=== PATIENT | female | born 1960 | race Caucasian/White ===

== ENCOUNTER 2023-04-05 19:00 | Observation (INO) | payer MEDICARE, MEDICAID ==
[2023-04-05] MEDS ORDERED: HYDROmorphone 1 MG/ML Syringe SUBCUT ONE (19:11)
[2023-04-05] MEDS ORDERED: HYDROmorphone 0.5 MG/0.5 ML Syringe SUBCUT ONE (19:18)
[2023-04-05] MEDS ORDERED: HYDROmorphone 0.5 MG/0.5 ML Syringe IM ONE (20:15)
[2023-04-06] MEDS: HYDROmorphone 0.5 MG/0.5 ML Syringe SUBCUT PRN ×2 (01:09→06:36)
[2023-04-06] MEDS ORDERED: HYDROmorphone 1 MG/ML Syringe SUBCUT ONE ×2 (09:21→13:08)
[2023-04-06] MEDS ORDERED: LORazepam Conc Solution 2 MG/ML 30 ML Bottle PO SCH ×2 (10:00→13:00)
[2023-04-06] MEDS ORDERED: LORazepam Conc Solution 2 MG/ML 30 ML Bottle PO ONE (13:09)
== END 2023-04-06 13:40 | disposition short-term general hospital (02) ==
LOC: VM.ED 19:00 → VM.MS 21:21
PROVIDERS: ADMIT Physician Assistant; ATTEND Physician Assistant
DX: S72.002A Fracture of unspecified part of neck of left femur, initial encounter for closed fracture (principal); Q90.9 Down syndrome, unspecified; F03.90 Unspecified dementia, unspecified severity, without behavioral disturbance, psychotic disturbance, mood disturbance, and anxiety; Z88.2 Allergy status to sulfonamides; Z79.899 Other long term (current) drug therapy; X58.XXXA Exposure to other specified factors, initial encounter
CPT/HCPCS: 72170; 96372; 99285; A9270; G0378; J1170

== ENCOUNTER 2023-04-11 03:08 | Inpatient (IN) | payer MEDICARE, MEDICAID ==
[2023-04-11] MEDS ORDERED: cefTRIAXone 1 GM Vial IVPUSH ONE (03:13)
[2023-04-11] MEDS ORDERED: Furosemide 40 MG/4 ML VIAL IV ONE (03:13)
[2023-04-11] MEDS ORDERED: Sodium Chloride 0.9% 1,000 ML IV ONE (03:18)
[2023-04-11] MEDS ORDERED: Acetaminophen 650 MG Supp RECTAL ONE (03:27)
[2023-04-11] MEDS ORDERED: Morphine 2 MG/ML SYRINGE IVPUSH ONE ×2 (03:32→04:29)
[2023-04-11 03:34] LABS: BASOPHILS PERCENT AUTO 0.1 % (0.2-1.2); EOSINOPHILS PERCENT AUTO 0.1 % (0.0-4.0); HEMATOCRIT 30.5 % (33.0-47.0); HEMOGLOBIN 10.1 g/dL (12.0-16.0); IMMATURE GRAN ABSOLUTE AUTO 0.02 x10^3/uL (0.00-0.07); LYMPHOCYTES ABSOLUTE AUTO 0.8 x10^3/uL (1.0-4.8); LYMPHOCYTES PERCENT AUTO 9.4 % (25.0-50.0); MEAN CORPUSCULAR HEMOGLOBIN 32.8 pg (26.0-32.0); MEAN CORPUSCULAR HGB CONC 33.1 g/dL (32.0-36.0); MONOCYTES ABSOLUTE AUTO 0.8 x10^3/uL (0.0-0.8); MONOCYTES PERCENT AUTO 9.1 % (2.0-11.0); NEUTROPHILS ABSOLUTE AUTO 6.7 x10^3/uL (1.8-7.7); NEUTROPHILS PERCENT AUTO 81.1 % (50.0-80.0); PLATELET COUNT,PLT 251 x10^3/uL (130-400); RED BLOOD CELL COUNT 3.08 x10^6/uL (4.00-5.50); WHITE BLOOD CELL COUNT,WBC 8.3 x10^3/uL (4.0-10.0)
[2023-04-11 03:48] LABS: INR 1.1 (2.0-3.5); PROTHROMBIN TIME 12.1 SEC (9.5-12.2)
[2023-04-11 03:56] LABS: LACTIC ACID 5.9 mmol/L (0.4-2.0)
[2023-04-11 03:59] LABS: APPEARANCE,URINE CLEAR (CLEAR); BILIRUBIN,URINE SMALL (NEGATIVE); GLUCOSE,URINE NEGATIVE (NEGATIVE); KETONES,URINE TRACE mg/dL (NEGATIVE); LEUKOCYTE ESTERASE,URINE NEGATIVE (NEGATIVE); NITRITE,URINE NEGATIVE (NEGATIVE); OCCULT BLOOD,URINE TRACE-INTACT (NEGATIVE); PROTEIN,URINE 100 mg/dL (NEGATIVE); UROBILINOGEN,URINE 0.2 EU/dL (0.2)
[2023-04-11] MEDS ORDERED: metroNIDAZOLE/Normal Saline 500 MG in Premix Bag 1 BAG IV ONE (04:00)
[2023-04-11 04:04] LABS: A/G RATIO 0.53; ALANINE AMINOTRANSFERASE,ALT 36 U/L (14-59); ALBUMIN 2.5 g/dL (3.4-5.0); ALKALINE PHOSPHATASE 83 U/L (46-116); ASPARTATE AMNIOTRANSFERASE,AST 68 U/L (15-37); BILIRUBIN TOTAL 0.7 mg/dL (0.2-1.0); BLOOD UREA NITROGEN,BUN 28 mg/dL (7-18); CALCIUM 8.8 mg/dL (8.5-10.1); CARBON DIOXIDE,CO2 28 mmol/L (21-32); CHLORIDE,CL 112 mmol/L (98-107); CREATININE 1.6 mg/dL (0.55-1.02); GLUCOSE RANDOM 156 mg/dL (70-99); PRO B-TYPE NATRIUR PEPT,BNPPRO 1260 pg/mL (<=125); PROTEIN TOTAL,TP 7.2 g/dL (6.4-8.2); SODIUM,NA 152 mmol/L (136-145)
[2023-04-11 04:06] LABS: ESTIMATED GFR 36 mL/min (>=60)
[2023-04-11 04:07] LABS: CREATINE KINASE,CK 1261 U/L (26-192)
[2023-04-11 04:08] LABS: COLOR,URINE DARK YELLOW (YELLOW)
[2023-04-11 04:09] LABS: BACTERIA,URINE RARE /HPF (NOT SEEN); MUCUS,URINE FEW /LPF (NOT SEEN); RBC,URINE 0-5 /HPF (NOT SEEN); SQUAMOUS EPITHELIAL CELLS,UR FEW /HPF (NOT SEEN); WBC,URINE 0-5 /HPF (NOT SEEN)
[2023-04-11] MEDS ORDERED: Morphine 2 MG/ML SYRINGE IVPUSH PRN (04:19)
[2023-04-11] MEDS ORDERED: Ondansetron 4 MG/2 ML SDV IVPUSH PRN (06:58)
[2023-04-11] MEDS ORDERED: Atropine 1% Ophth Soln 5 ML Bottle SL PRN (06:58)
[2023-04-11] MEDS ORDERED: Menthol/Zinc Oxide Ointment 3.5 GM Tube TOP PRN (06:58)
[2023-04-11] MEDS ORDERED: Lidocaine 2% Viscous Solution 15 ML UD PO PRN (06:58)
[2023-04-11] MEDS ORDERED: HYDROmorphone 1 MG/ML Syringe IVPUSH SCH (07:00)
[2023-04-11] MEDS: HYDROmorphone 0.5 MG/0.5 ML Syringe IVPUSH PRN ×2 (10:55→13:45)
[2023-04-11] MEDS ORDERED: Acetaminophen 650 MG Supp RECTAL PRN (13:11)
== END 2023-04-11 16:48 | disposition expired | DRG 871 ==
LOC: VM.ED 03:08 → VM.MS 04:57
PROVIDERS: ADMIT Internal Medicine; ATTEND Family Medicine
DX: A41.9 Sepsis, unspecified organism (principal); J18.9 Pneumonia, unspecified organism; J69.0 Pneumonitis due to inhalation of food and vomit; J96.01 Acute respiratory failure with hypoxia; G30.9 Alzheimer's disease, unspecified; F02.80 Dementia in other diseases classified elsewhere, unspecified severity, without behavioral disturbance, psychotic disturbance, mood disturbance, and anxiety; N17.9 Acute kidney failure, unspecified; E87.0 Hyperosmolality and hypernatremia; M62.82 Rhabdomyolysis; F02.84 Dementia in other diseases classified elsewhere, unspecified severity, with anxiety; F02.811 Dementia in other diseases classified elsewhere, unspecified severity, with agitation; E44.0 Moderate protein-calorie malnutrition; Z51.5 Encounter for palliative care; Z66 Do not resuscitate; G30.8 Other Alzheimer's disease; R65.20 Severe sepsis without septic shock; D64.9 Anemia, unspecified; Z96.642 Presence of left artificial hip joint; Z88.2 Allergy status to sulfonamides; Z98.890 Other specified postprocedural states; Q90.9 Down syndrome, unspecified; S72.002D Fracture of unspecified part of neck of left femur, subsequent encounter for closed fracture with routine healing; Z79.899 Other long term (current) drug therapy
CPT/HCPCS: 36415; 71045; 80053; 81001; 82550; 83605; 83880; 85025; 85610; 87040; 87070; 96361; 96374; 96375; 99284; 99285-25; A9270-GY; J0696; J1170; J1940; J2270; J3360; J7030